=== PATIENT | male | born 1990 | race Caucasian/White ===

== ENCOUNTER 2021-05-05 15:27 | Outpatient (REF) | payer MEDICAID, SELFPAY | END 2021-05-05 15:28 | disposition home or self-care (01) | LOC: HO.LAB 15:27 | PROVIDERS: Visit Provider Internal Medicine | DX: Z20.822 Contact with and (suspected) exposure to COVID-19 (principal) | CPT/HCPCS: C9803; U0003; U0005 ==

== ENCOUNTER 2023-02-17 13:57 | Outpatient (REF) | payer MEDICAID, SELFPAY ==
--- NOTE | ~2023-02-17 | XR_ITS ---
EXAMINATION: XR HAND, LEFT CLINICAL INFORMATION: Pain COMPARISON: February 17 TECHNIQUE: PA, lateral, and oblique views of the left hand. FINDINGS: There is healed fracture of the fifth metacarpal bone with side plate and screws in position. Fracture is completely healed. No new fractures are identified. Soft tissues are unremarkable. XR/XR hand LT min 3V IMPRESSION: Healed boxers fracture with hardware
--- NOTE | ~2023-02-17 | XR_ITS ---
EXAMINATION: XR FINGER, RIGHT CLINICAL INFORMATION: Pain COMPARISON: None available. TECHNIQUE: AP, lateral, oblique views of the right hand and first finger. FINDINGS: There are changes of osteoarthritis in the first metacarpophalangeal joint with narrowing of the joint space and subluxation. Soft tissues are mildly prominent surrounding the joint space. XR/XR finger RT min 2V IMPRESSION: Mild changes of osteoarthritis of the first metacarpophalangeal joint
--- NOTE | ~2023-02-17 | XR_ITS ---
EXAMINATION: XR SHOULDER, LEFT CLINICAL INFORMATION: Left shoulder pain COMPARISON: 01/22/2020 TECHNIQUE: AP external rotation, Grashey, scapular Y, and axillary views of the left shoulder. FINDINGS: The bones and soft tissues are normal. No fracture. Glenohumeral and acromioclavicular alignment is anatomic with normal joint space. No abnormal soft tissue calcifications. XR/XR shoulder LT min 2V IMPRESSION: Normal left shoulder.
== END 2023-02-17 13:58 | disposition home or self-care (01) ==
LOC: HO.XRAY 13:57
PROVIDERS: PCP Emergency Medicine; Visit Provider Emergency Medicine
DX: S69.91XD Unspecified injury of right wrist, hand and finger(s), subsequent encounter (principal); S69.92XD Unspecified injury of left wrist, hand and finger(s), subsequent encounter; M25.512 Pain in left shoulder
CPT/HCPCS: 73030; 73130; 73140

== ENCOUNTER 2023-03-31 15:17 | Outpatient (REF) | payer MEDICAID, SELFPAY ==
[2023-03-31 17:02] LABS: Alanine Aminotransferase 28 U/L (0-40); Albumin Level 4.4 g/dL (3.5-5.0); Alkaline Phosphatase 95 U/L (39-117); Anion Gap 13 (12-20); Aspartate Amino Transferase 18 U/L (5-37); Bilirubin Total 0.3 mg/dL (0.0-1.0); Blood Urea Nitrogen 11 mg/dL (9-16); Calcium 9.9 mg/dL (8.4-10.2); Carbon Dioxide 29 mmol/L (22-29); Chloride 105 mmol/L (96-108); Cholesterol 163 mg/dL (<200); Estimated Glomerular Filt Rate > 60; Glucose Random 98 mg/dL (60-115); HDL Cholesterol 39 mg/dL (>40); LDL Cholesterol Calculated 99 mg/dL (<100); Potassium 4.5 mmol/L (3.3-5.1); Sodium 142 mmol/L (135-145); Triglycerides 126 mg/dL (<150)
[2023-04-01 03:59] LABS: CT PCR NOT DETECTED (Not Detect.); NG PCR NOT DETECTED (Not Detect.)
[2023-04-02 08:14] LABS: RPR Rapid Plasma Reagin NON-REACTIVE (NON-REACTIVE)
== END 2023-03-31 15:18 | disposition home or self-care (01) ==
LOC: HO.HHCL 15:17
PROVIDERS: Visit Provider Nurse Practitioner Family
DX: Z11.3 Encounter for screening for infections with a predominantly sexual mode of transmission (principal); R03.0 Elevated blood-pressure reading, without diagnosis of hypertension
CPT/HCPCS: 0353U; 80053; 80061; 86592

== ENCOUNTER 2023-07-23 16:26 | Outpatient (REF) | payer MEDICAID, SELFPAY ==
[2023-07-27 08:44] LABS: HIV RNA PCR Qn Copies NOT DETECTED copies/mL (NOT DETECTED); HIV RNA PCR Qn Log Copies NOT DETECTED (NOT DETECTED)
== END 2023-07-23 16:27 | disposition home or self-care (01) ==
LOC: HO.HHCL 16:26
PROVIDERS: Visit Provider Nurse Practitioner Family
DX: Z11.3 Encounter for screening for infections with a predominantly sexual mode of transmission (principal)
CPT/HCPCS: 36415; 87536

== ENCOUNTER 2024-03-07 10:22 | Outpatient (REF) | payer MEDICAID, SELFPAY ==
--- NOTE | ~2024-03-07 | XR_ITS ---
EXAMINATION: XR SHOULDER, RIGHT CLINICAL INFORMATION: Pain right shoulder COMPARISON: None available. TECHNIQUE: Two views of the right shoulder. FINDINGS: Acromioclavicular and glenohumeral alignment maintained. No abnormal soft tissue calcifications appreciated adjacent to the humeral head. XR/XR shoulder RT min 2V IMPRESSION: Acromioclavicular and glenohumeral alignment maintained. Electronically signed by: Leyda Maldonado MD 04/05/2024 06:05 AM EDT
== END 2024-03-07 10:23 | disposition home or self-care (01) ==
LOC: HO.HOSX 10:22
PROVIDERS: Visit Provider Orthopaedic Surgery
DX: M25.511 Pain in right shoulder (principal); M25.512 Pain in left shoulder
CPT/HCPCS: 73030; 99202

== ENCOUNTER 2024-03-07 13:13 | Outpatient (AMB) | payer MEDICAID, SELFPAY ==
--- NOTE | 2024-03-07 13:35 | A.OFFVIS_ITS ---
Vital Signs 03/07/24 13:43 Height 5 ft 10 in Weight 196 lb BMI 28.1 Intake Visit Reasons: LT shoulder pain Intake Note: Scottie is a 33 year old male who presents with complaints of progressively worsening left shoulder pain. He also has intermittent right shoulder discomfort. States that he injured his left shoulder 2-3 years ago when he fell directly onto his left shoulder. Since that time he has had weakness when lifting his left hand above shoulder height. He has failed the last 6 weeks of conservative treatment. He has tried Tylenol, anti-inflammatory medicines, topical creams and lidocaine patches which gave him minimal relief. He has also done physical therapy exercises which aggravated his pain. Allergies SEAFOOD Allergy (Unknown, Uncoded 03/07/24 13:49) SWELLING Medication List - Last Reconciled 03/07/24 by Armani Frederick MD baclofen 10 mg PO TID diclofenac sodium 1% 2 grams topical QID lidocaine 5% patches topical lisinopril 10 mg PO DAILY PFSH Surgical History (Updated 03/07/24 @ 13:50 by SURINDER Thomas) Hx of hand surgery Social History (Updated 03/07/24 @ 13:50 by SURINDER Thomas) Patient Tobacco Use Status: Current everyday Tobacco user Current occupational status: unemployed Current occupation: right hand dominant Physical Exam Vital Signs: BMI result Body Mass Index 28.1 Const Other: Well-nourished well-developed very friendly male awake alert and oriented x3 in no acute distress Extrem Other: Bilateral upper extremity examination shows good capillary refill, no skin lesions noted, normal sensation light touch Left shoulder examination shows decreased range of motion when compared to his right shoulder, 4+ out of 5 strength with supraspinatus testing, positive impingement signs, tenderness over his acromioclavicular joint, no instability Results Reviewed Results Reviewed: X-rays of the patient's right shoulder taken today show moderate acromioclavicular joint narrowing, a type 2 acromion, no acute bony abnormalities X-rays of the patient's left shoulder taken previously show moderate to severe acromioclavicular joint narrowing, a type 2 acromion, no acute bony abnor malities Assessment & Plan Assessment & Plan (1) Left shoulder pain: Code(s): M25.512 - Pain in left shoulder Category: Medical Plan Mr. Schwartz presents with progressively worsening left shoulder pain and weakness due to impingement syndrome and possible rotator cuff tearing. Thus, I will send the patient for an MRI of his left shoulder for further evaluation. I will see him back once the MRI is completed to discuss the findings and treatment options. Feel free to call me at any time should questions regarding his orthopedic management arise. Thank you very much for asking me to see this very friendly patient. I spent 22 minutes in reviewing the patient's records and imaging studies, seeing the patient and documenting in the medical record. Orders: Orders XR shoulder RT min 2V Today M25.511 - Pain in right shoulder MR shoulder LT wo con Today M25.512 - Pain in left shoulder Coding Level of Care Code New Pt Level 3 (15810) Diagnoses Left shoulder pain M25.512
[2024-03-07 13:43] VITALS: BMI 28.1
== END 2024-03-07 13:55 | disposition home or self-care (01) ==
PROVIDERS: PCP Emergency Medicine; Referring Provider Emergency Medicine; Visit Provider Orthopaedic Surgery
DX: M25.512 Pain in left shoulder (principal)
CPT/HCPCS: 99203

== ENCOUNTER 2024-03-14 10:27 | Outpatient (AMB) | payer MEDICAID, SELFPAY ==
--- NOTE | 2024-03-14 10:41 | A.OFFVIS_ITS ---
Vital Signs 03/14/24 10:47 Height 5 ft 10 in Intake Visit Reasons: NewProb- B/L knee pain Intake Note: Scottie is a 33 year old male who presents with complaints of progressively worsening bilateral knee pains and giving way, right greater than left. The patient describes his right knee pain as sharp in nature. Most of the pain is along the medial aspect of his knee. The patient states that his symptoms have gotten worse over the last 5 years in spite of continued non operative treatments. He has failed the last 6 weeks of conservative treatment which include a home exercise program, lidocaine patches, Tylenol and anti- inflammatory medicines. He states that his right knee will give out several times per day. He has difficulty going up and down stairs because of his symptoms. Allergies SEAFOOD Allergy (Unknown, Uncoded 03/07/24 13:49) SWELLING Medication List - Last Reconciled 03/14/24 by Armani Frederick MD baclofen 10 mg PO TID diclofenac sodium 1% 2 grams topical QID lidocaine 5% patches topical lisinopril 10 mg PO DAILY PFSH Surgical History (Updated 03/07/24 @ 13:50 by Rosa Ferro Reuben) Hx of hand surgery Social History Patient Tobacco Use Status: Current everyday Tobacco user Current occupational status: unemployed Current occupation: right hand dominant Physical Exam Const Other: Well-nourished well-developed very friendly male awake alert and oriented x3 in no acute distress Extrem Other: Bilateral lower extremity examination shows good capillary refill, no skin lesions noted, normal sensation light touch Right knee examination shows a minimal effusion, minimal crepitus with range of motion, tenderness along his medial joint line, positive Олег's test, no instability Results Reviewed Results Reviewed: X-rays of the patient's bilateral knee show minimal diffuse joint space narrowing, no acute bony abnormalities Assessment & Plan Assessment & Plan (1) Right knee pain: Code(s): M25.561 - Pain in right knee Category: Medical Plan Mr. Schwartz presents with progressively worsening right knee pain and mechanical symptoms most likely due to tearing of his medial meniscus. Thus, I will send the patient for an MRI of his right knee for further evaluation. I will see him back once the MRI is completed to discuss the findings and treatment options. Feel free to call me at any time should questions regarding his orthopedic management arise. I spent 22 minutes in reviewing the patient's records and imaging studies, seeing the patient and documenting in the medical record. Orders: Orders MR knee RT wo con 03/14/24 M25.561 - Pain in right knee XR knee LT 3V 03/14/24 M25.562 - Pain in left knee XR knee RT 3V 03/14/24 M25.561 - Pain in right knee Coding Level of Care Code Est Pt Level 3 (98420) Diagnoses Right knee pain M25.561
== END 2024-03-14 11:06 | disposition home or self-care (01) ==
PROVIDERS: PCP Emergency Medicine; Referring Provider Emergency Medicine; Visit Provider Orthopaedic Surgery
DX: M25.561 Pain in right knee (principal)
CPT/HCPCS: 99213

== ENCOUNTER 2024-03-14 11:29 | Outpatient (REF) | payer MEDICAID, SELFPAY ==
--- NOTE | ~2024-03-14 | XR_ITS ---
Exam: X-ray bilateral knees INDICATION: Pain TECHNIQUE: 3 views of each knee FINDINGS: Right knee: Moderate joint effusion. Bone mineralization is normal. Cartilage spaces and alignment are maintained. Left knee: Moderate joint effusion. Bone mineralization is normal. Joint spaces and alignment are preserved. XR/XR knee LT 3V IMPRESSION: Moderate bilateral joint effusions. Electronically signed by: Leyda Maldonado MD 04/05/2024 06:42 AM EDT
--- NOTE | ~2024-03-14 | XR_ITS ---
Exam: X-ray bilateral knees INDICATION: Pain TECHNIQUE: 3 views of each knee FINDINGS: Right knee: Moderate joint effusion. Bone mineralization is normal. Cartilage spaces and alignment are maintained. Left knee: Moderate joint effusion. Bone mineralization is normal. Joint spaces and alignment are preserved. XR/XR knee RT 3V IMPRESSION: Moderate bilateral joint effusions. Electronically signed by: Leyda Maldonado MD 04/05/2024 06:42 AM EDT
== END 2024-03-14 11:30 | disposition home or self-care (01) ==
LOC: HO.HOSX 11:29
PROVIDERS: Visit Provider Orthopaedic Surgery
DX: M25.561 Pain in right knee (principal); M25.562 Pain in left knee
CPT/HCPCS: 73562; 99212

== ENCOUNTER 2024-03-24 13:31 | Outpatient (AMB) | payer MEDICAID, SELFPAY ==
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
== END 2024-03-24 14:58 | disposition home or self-care (01) ==
PROVIDERS: PCP Emergency Medicine
DX: M79.644 Pain in right finger(s) (principal); G89.29 Other chronic pain
CPT/HCPCS: 99213

== ENCOUNTER 2024-03-24 13:42 | Outpatient (REF) | payer MEDICAID, SELFPAY ==
--- NOTE | ~2024-03-24 | XR_ITS ---
EXAMINATION: XR HAND, RIGHT CLINICAL INFORMATION: Pain in right hand. COMPARISON: None available. TECHNIQUE: PA, lateral, and oblique views of the right hand. FINDINGS: Bone mineralization is normal. Ulnar minus variance. Advanced degenerative changes in the first metacarpophalangeal joint with joint space narrowing and hypertrophic change. Mild degenerative changes with hypertrophic change in the second and third DIP joints. XR/XR hand RT min 3V IMPRESSION: 1. Advanced degenerative changes first metacarpophalangeal joint. 2. Mild degenerative changes second and third DIP joints. 3. No displaced fracture. Recommend follow-up imaging in 10-14 days if fracture is suspected. Electronically signed by: Leyda Maldonado MD 04/05/2024 07:32 AM EDT
== END 2024-03-24 13:43 | disposition home or self-care (01) ==
LOC: HO.HOSX 13:42
PROVIDERS: PCP Nurse Practitioner Family
DX: M79.641 Pain in right hand (principal); M79.644 Pain in right finger(s); G89.29 Other chronic pain; M18.11 Unilateral primary osteoarthritis of first carpometacarpal joint, right hand
CPT/HCPCS: 73130; 99212

== ENCOUNTER 2024-04-22 09:47 | Outpatient (REF) | payer MEDICAID, SELFPAY ==
--- NOTE | ~2024-04-22 | MR_ITS ---
EXAMINATION: MR KNEE WITHOUT CONTRAST, RIGHT CLINICAL INFORMATION: Right knee pain COMPARISON: Radiographs 03/14/2024 TECHNIQUE: MRI of the knee without contrast was performed using routine sequences on a high-field scanner. Image quality is degraded by patient motion artifact. FINDINGS: MENISCI: Medial Meniscus: Intact Lateral Meniscus: Intact LIGAMENTS: Cruciate: Intact. Mild mucoid degeneration of the ACL. Reactive soft tissue edema at the posterior most aspect of Hoffa's fat pad. Collateral: Intact EXTENSOR MECHANISM: Intact. Minimal proximal patellar tendinitis. ARTICULAR CARTILAGE/BONE: Patellofemoral Compartment: Normal Medial Compartment: Normal Lateral Compartment: Normal JOINT FLUID AND BURSAE: Small joint effusion and a leaking or recently ruptured Laguna's cyst with fluid tracking proximally, superficial to the medial gastrocnemius muscle. MR/MR knee RT wo con IMPRESSION: 1. No meniscal tear. 2. Mild mucoid degeneration of the ACL. 3. Minimal proximal patellar tendinitis. 4. Small joint effusion and a leaking or recently ruptured Laguna's cyst. Electronically signed by: Tommy Menchaca MD 04/25/2024 04:25 PM EDT
--- NOTE | ~2024-04-22 | MR_ITS ---
EXAMINATION: MRI LEFT SHOULDER WITHOUT CONTRAST CLINICAL INFORMATION: M25.512 - Pain in left shoulder COMPARISON: Radiographs 02/17/2023 TECHNIQUE: MRI of the shoulder without contrast is performed on a 1.5 Carolyn high-field scanner. FINDINGS: ROTATOR CUFF: Intact. No muscle atrophy or fatty infiltration. BICEPS: Normal. CORACOACROMIAL ARCH: The undersurface of the acromion is flat with no subacromial spur. Minimal acromioclavicular osteoarthritis. LABRUM/CAPSULE: Undersurface tearing throughout the posterior labrum. At the 9 o'clock position, there is a paralabral cyst which extends medially between the scapula and the infraspinatus muscle. This cyst is slightly lobulated, measures 6.4 cm in length, with maximal transverse measurements of 2.2 x 2.2 cm. GLENOHUMERAL JOINT/MARROW: No significant joint effusion. ADDITIONAL FINDINGS: None. MR/MR shoulder LT wo con IMPRESSION: 1. Undersurface tearing throughout the posterior labrum with a large paralabral cyst at the 9 o'clock position as described. 2. No rotator cuff tear. 3. Degenerative changes along the posterior glenoid. Minimal acromioclavicular osteoarthritis. Electronically signed by: Tommy Menchaca MD 04/25/2024 04:21 PM EDT RP
== END 2024-04-22 09:48 | disposition home or self-care (01) ==
LOC: HO.MRI 09:47
PROVIDERS: PCP Nurse Practitioner Family; Visit Provider Orthopaedic Surgery
DX: M25.512 Pain in left shoulder (principal); M25.561 Pain in right knee
CPT/HCPCS: 73221; 73721

== ENCOUNTER 2024-05-02 15:42 | Outpatient (AMB) | payer MEDICAID, SELFPAY ==
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
[2024-05-02 16:47] VITALS: BMI 28.1
== END 2024-05-02 17:00 | disposition home or self-care (01) ==
PROVIDERS: PCP Nurse Practitioner Family; Referring Provider Nurse Practitioner Family; Visit Provider Orthopaedic Surgery
DX: M19.041 Primary osteoarthritis, right hand (principal)
CPT/HCPCS: 99213

== ENCOUNTER → 2024-05-02 15:42 | Outpatient (BNVA) | payer MEDICAID, SELFPAY | PROVIDERS: PCP Nurse Practitioner Family; Visit Provider Orthopaedic Surgery | DX: M19.041 Primary osteoarthritis, right hand (principal) | CPT/HCPCS: 99212 ==

== ENCOUNTER 2024-05-16 08:59 | Outpatient (AMB) | payer MEDICAID, SELFPAY ==
--- NOTE | 2024-05-16 09:01 | A.OFFVIS_ITS ---
Intake Visit Reasons: OV-Right Knee and LT Shoulder MRI Review Intake Note: Scottie is a 33 year old male that presents in the office today for a Right Knee and LT Shoulder MRI Review. The patient reports only mild discomfort in his right knee at this time. He is most concerned with his left shoulder pain and weakness. The patient describes his pain as sharp and severe in nature. Most of the pain is along the posterior and lateral aspects of his left shoulder. He reports weakness when lifting his left hand above shoulder height. His symptoms have gotten worse over the last year in spite of continued non operative treatments. He has taken Tylenol, anti-inflammatory medicines and muscle relaxants which gave him minimal relief. He has also use topical creams which gave him no relief. He has done physical therapy exercises which aggravated his pain. Allergies SEAFOOD Allergy (Unknown, Uncoded 05/02/24 16:47) SWELLING Medication List - Last Reconciled 05/16/24 by Armani Frederick MD baclofen 10 mg PO TID diclofenac sodium 1% 2 grams topical QID lidocaine 5% patches topical lisinopril 10 mg PO DAILY PFSH Surgical History Hx of hand surgery Social History Alcohol intake: never Patient Tobacco Use Status: Current someday Tobacco user Tobacco use type: Cigarette Substance Use Type: Marijuana Current occupational status: unemployed Current occupation: right hand dominant Physical Exam Const Other: Well-nourished well-developed very friendly male awake alert and oriented x3 in no acute distress Extrem Other: Left shoulder examination shows slightly decreased range of motion when compared to his right shoulder, 4/5 strength with supraspinatus testing, pain with resisted forward flexion, no instability Right knee examination shows no effusion, no crepitus with range of motion, negative Олег's test Results Reviewed Results Reviewed: MRI of the patient's right knee shows no evidence of ligamentous or meniscus tearing, no significant degenerative changes MRI of the patient's left shoulder shows a tear of the posterior labrum as well as a large paralabral cyst Assessment & Plan Assessment & Plan (1) Left shoulder pain: Code(s): M25.512 - Pain in left shoulder Category: Medical Plan Harsh presents with left shoulder pain and weakness possibly due to the paralabral cyst causing compression of the suprascapular nerve at the suprascapular notch. I had a lengthy discussion with the patient regarding the treatment options. At this point he appears to be failing continued non operative treatments. No one here at [facility] treats this type of problem. The patient could follow-up with Dr. Zamora in [place] who might treat this type of problem. Or, the patient could be evaluated by Dr. BEATRIZ Garnett at the [facility] who specializes in this type of problem. The patient states that he wishes to see Dr. Garnett. I did give him contact information. He will follow up with me on an as-needed basis. Feel free to call me at any time should questions regarding his orthopedic management arise. I spent 20 minutes in reviewing the patient's records and imaging studies, seeing the patient and documenting in the medical record. Coding Level of Care Code Est Pt Level 3 (52287) Complex EM visit Add On G2211 Diagnoses Left shoulder pain M25.512
== END 2024-05-16 09:23 | disposition home or self-care (01) ==
PROVIDERS: PCP Nurse Practitioner Family; Visit Provider Orthopaedic Surgery
DX: M25.512 Pain in left shoulder (principal)
CPT/HCPCS: 99213

== ENCOUNTER → 2024-05-16 08:59 | Outpatient (BNVA) | payer MEDICAID, SELFPAY | PROVIDERS: PCP Nurse Practitioner Family; Visit Provider Orthopaedic Surgery | DX: M25.512 Pain in left shoulder (principal) | CPT/HCPCS: 99212 ==

== ENCOUNTER 2024-08-29 08:48 | Outpatient (REF) | payer MEDICAID, SELFPAY ==
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
== END 2024-08-29 08:49 | disposition home or self-care (01) ==
LOC: HO.HOSX 08:48
PROVIDERS: Visit Provider Orthopaedic Surgery
DX: Z13.89 Encounter for screening for other disorder (principal)

== ENCOUNTER 2024-09-26 12:25 | Outpatient (REF) | payer MEDICAID, SELFPAY ==
--- OUTSIDE RECORDS SUMMARY | 2024-09-27 14:46 | XMS_ITS | Clinical Summary ---
Author Organization [employer] Address [address] [facility] 7t [place] [address] Care Team Providers Care Auger Mill Operator Name Role Phone JeffClaire delong TENZIN Primary Care Provider [phone] Allergies No known active allergies Medications Blood [...] Qn Copies NOT DETECTED NOT DETECTED copies/mL [facility] HIV RNA PCR Qn Log Copies NOT DETECTED NOT DETECTED [facility] Comment:Result Units: Log co pies/mLThis test was performed using Real-Time Polymerase ChainReaction.Reportable Range: 20 copies/mL to 10,000,000 copies/mL(1.30 log copies/mL to 7.00 log copies/mL).THIS TEST WAS PERFORMED AT:[facility] [place] [phone] CAGE MD 07/23/2023 4:28 PM EST 07/23/2023 5:[address] TAILOR APPRENTICE LAB BLOOD ORDERABLES Final Resu lt [facility] [address] [place] [address] [phone] from Last 3 Months or Most Recently Relevant to Health Maintenance Insurance [employer] C3 HSN FULL [employer] C3 HSN FULL Care Teams Auger Mill Operator Relationship Specialty Start Date End Date Claire Carrera NP [address] [place] [phone] PCP - General Family Medicine 03/28/24
== END 2024-09-26 12:26 | disposition home or self-care (01) ==
LOC: HO.HOSX 12:25
PROVIDERS: Visit Provider Orthopaedic Surgery
DX: Z13.89 Encounter for screening for other disorder (principal)

== ENCOUNTER 2024-12-05 14:22 | Outpatient (REF) | payer MEDICAID, SELFPAY ==
--- OUTSIDE RECORDS SUMMARY | 2024-12-05 15:34 | XMS_ITS | Clinical Summary ---
Author Organization [employer] [facility] Address [address] [facility] 7t [place] [address] Care Team Providers Care Finishing Powder Press Operator Name Role Phone DebiClaire TENZIN Primary Care Provider [phone] Allergies No known active allergies Medications Blood [...] 01/18/2023 Chronic pain of left hand 01/18/2023 Encounters Date Type Department Care Team Description 10/06/2024 Population Health Risk Score [facility] (C3) Department [address] [id number] Provider, Population Health Generic from Last 3 Months Immunizations Name Administration Dates Next Due Tdap [...] (PISQ) 2006 Hepatitis C Screening 2009 Hepatitis B Vaccines (1 of 3 - [...] on patient's age to complete this topic Hepatitis A Vaccines Aged Out No long er eligible based on patient's age to complete [...] Qn Copies NOT DETECTED NOT DETECTED copies/mL [facility] HIV RNA PCR Qn Log Copies NOT DETECTED NOT DETECTED [facility] Comment:Result Units: Log co pies/mLThis test was performed using Real-Time Polymerase ChainReaction.Reportable Range: 20 copies/mL to 10,000,000 copies/mL(1.30 log copies/mL to 7.00 log copies/mL).THIS TEST WAS PERFORMED AT:[facility] [place] [phone] CAGE MD 07/23/2023 4:28 PM EST 07/23/2023 5:19 PM EST Amanda Ariana OPERATOR TECHNICIAN LAB BLOOD ORDERABLES Final Resu lt [facility] [address] [place] [address] [phone] from Last 3 Months or Most Recently Relevant to Health Maintenance [facility] F[facility] C3 HSN FULL Care Teams Finishing Powder Press Operator Relationship Specialty Start Date End Date Claire Carrera NP [address] [place] [address] PCP - General Family Medicine 03/28/24
== END 2024-12-05 14:23 | disposition home or self-care (01) ==
LOC: HO.HOSX 14:22
PROVIDERS: Visit Provider Orthopaedic Surgery
DX: Z13.89 Encounter for screening for other disorder (principal)

== ENCOUNTER 2024-12-06 08:48 | Outpatient (AMB) | payer MEDICAID, SELFPAY ==
[2024-12-06 09:02] VITALS: BMI 28.1
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
--- OUTSIDE RECORDS SUMMARY | 2024-12-06 09:11 | XMS_ITS | Clinical Summary ---
Author Organization [facility] Address [address] [facility] 7t [place] [address] Care Team Providers Care Dental Lab Technician Name Role Phone JeffClaire delong TENZIN Primary Care Provider [phone] Allergies No known active allergies Medications Blood [...] Encounters Date Type Department Care Team Description 12/06/2024 Orders Only [facility] External Provider, [facility] 10/06/2024 Population Health Risk Score [facility] (C3) Department [address] [phone] Provider, Population Health Generic from Last 3 Months Immunizations Immunization Administration Dates Next Due Tdap 01/22/2020 Social [...] Procedure Name Priority Date/Time Associated Diagnosis Comments XR HAND 3+ VIEWS RIGHT Routine 12/06/2024 8:53 AM EDT HIV 1 RNA, QUANTITATIVE REAL TIME PCR Routine 07/23/2023 4:28 PM EST from Last 3 Months or Most Recently Relevant to Health Maintenance Results * XR Hand 3+ Views Right (12/06/2024 8:53 AM EDT) Anatomical Region Laterality Modality Upper Extremities, Hand Right Radiogra phic Imaging 12/06/2024 8:53 AM EDT Narrative 12/06/2024 9:05 AM EDT ? [facility] ? [address] ?[place], [place] [address] ?XRay Report ? Signed ? Patient: Schwartz,Scottie Houes ?MR#: [id number] ?? [id number] ? : 1990 ?Acct:[id number] ? Age/Sex: 34 / M ?ADM Date: 12/06/24 ? Loc: [facility].HOSX ? Attending Dr: Magi Kennedy MD ? Ordering Physician: Ziyad Roe PA-C ?? Date of Service: 12/06/24 ?? Procedure(s): XR hand RT min 3V ?? Accession Number(s): [id number] ? cc: Amanda Lane NP; Ziyad Roe PA-C ? EXAMINATION: ?? XR HAND, RIGHT ? CLINICAL INFORMATION: ?? M79.641 - Pain in right hand ? COMPARISON: ?? 03/24/2024. ? TECHNIQUE: ?? PA, lateral, and oblique views of the right hand. ? FINDINGS: ?? No fracture, dislocation, or suspicious bone lesion. Normal bone ?? mineralization. ?? Normal alignment. ?? No periarticular osteopenia or erosions evident. ? Moderate degenerative arthritis noted at the first MCP joint. ?? Remainder of the MCPs appear normal. ?? The DIP and PIP joints appear normal. ? Soft tissues appear normal. ? XR/XR hand RT min 3V ?? IMPRESSION: ?? 1. No acute bony abnormalities. ?? 2. Moderate degenerative arthrosis at the first MCP joint. ? Electronically signed by: ??Ladarius Charlton MD ??12/06/2024 09:02 AM EDT RP ? Dictated By: ?Ladarius Charlton MD ? Signed By: ?<Electronically signed by Ladarius Charlton MD in OV> ?12/06/24 0902 ? DD/ 0853 ? TD/TT: 12/06/24 0857 ? Fortune Teller: ? Procedure Note Toan Orellana - 12/06/2024 [facility] [address] [place] [address] XRay Report Signed Patient: Scottie Schwartz#: [id number] : 1990Acct:[id number] Age/Sex: 34 / MADM Date: 12/06/24 [facility]: Magi Kennedy MD Ordering Physician: Ziyad Roe PA-C Date of Service: 12/06/24 Procedure(s): XR hand RT min 3V Accession Number(s): [id number] cc: Amanda Lane DBA; Ziyad Roe PA-C EXAMINATION: XR HAND, RIGHT CLINICAL INFORMATION: M79.641 - Pain in right hand COMPARISON: 03/24/2024. TECHNIQUE: PA, lateral, and oblique views of the right hand. FINDINGS: No fracture, dislocation, or suspicious bone lesion. Normal bone mineralization. Normal alignment. No periarticular osteopenia or erosions evident. Moderate degenerative arthritis noted at the first MCP joint. Remainder of the MCPs appear normal. The DIP and PIP joints appear normal. Soft tissues appear normal. XR/XR hand RT min 3V IMPRESSION: 1. No acute bony abnormalities. 2. Moderate degenerative arthrosis at the first MCP joint. Electronically signed by: Ladarius Charlton MD 12/06/2024 09:02 AM EDT Dictated By: Ladarius Charlton MD Signed By: <Electronically signed by Ladarius Charlton MD in OV> 12/06/24 0902 DD/ 0853 TD/TT: 12/06/24 0857 Fortune Teller: [facility] External Provider IMG XR PROCEDURES Edited Result - Final * HIV-1 RNA, Quantitative, Real-Time PCR (07/23/2023 4:28 PM EST) HIV RNA PCR Qn Copies NOT DETECTED NOT DETECTED copies/mL [facility] HIV RNA PCR Qn Log Copies NOT DETECTED NOT DETECTED [facility] Comment:Result Units: Log co pies/mLThis test was performed using Real-Time Polymerase ChainReaction.Reportable Range: 20 copies/mL to 10,000,000 copies/mL(1.30 log copies/mL to 7.00 log copies/mL).THIS TEST WAS PERFORMED AT:[facility] [place] [phone] CAGE MD 07/23/2023 4:28 PM EST 07/23/2023 5:19 PM EST Amanda Ariana [facility] LAB BLOOD ORDERABLES Final Resu lt [facility] [address] [place] [address] [phone] from Last 3 Months or Most Recently Relevant to Health Maintenance Insurance [employer] C3 HSN FULL [employer] C3 HSN FULL Care Teams Dental Lab Technician Relationship Specialty Start Date End Date Claire Carrera NP [address] [place] [id number] PCP - General Family Medicine 03/28/24
--- OUTSIDE RECORDS SUMMARY | 2024-12-06 09:11 | XMS_ITS | Encounter Summary ---
Author Organization [employer] Address [address] [facility] 7t [place] [address] Care Team Providers Care Knot Picker Cloth Name Role Phone JeffClaire delong TENZIN Primary Care Provider [phone] Encounter Details Date Type Department Care Team (Late st Contact Info) Description 12/06/2024 Orders Only [facility] External Provider, [facility] Social History Tobacco Use Types Packs/Day Years Used Date Smoking Tobacco: Every Day Cigarettes 0.3 5 Smokeless Tobacco: Never Alcohol Use Standard Drinks/Week Comments Yes 0 (1 standard drink = 0.6 oz pur e alcohol) social occasions Depression Answer Date Recorded Patient Health Questionnaire-9 Score 0 03/31/2023 Housing Stability Answer Date Recorded What is your housing situation today? I have josethomas bernstein 05/25/[address] you [...] Orientation Straight 01/18/2023 1: 33 PM EDT documented as of this encounter Plan of Treatment Not on file documented as of this encounter Procedures Procedure Name Priority Date/Time Associated Diagnosis Comments XR HAND 3+ VIEWS RIGHT Routine 12/06/2024 8:53 AM EDT documented in this encounter Results * XR Hand 3+ Views Right (12/06/2024 8:53 AM EDT) Anatomical Region Laterality Modality Upper Extremities, Hand Right Radiogra phic Imaging 12/06/2024 8:53 AM EDT Narrative 12/06/2024 9:05 AM EDT ? [facility] ? [address] ?[place] [address] ?XRay Report ? Signed ? Patient: Schwartz,Neo ?MR#: [id number] ?? [id number] ? : 1990 ?Acct:[id number] ? Age/Sex: 34 / M ?ADM Date: 12/06/24 ? Loc: HO.HOSX ? Attending Dr: Magi Kennedy MD ? Ordering Physician: Ziyad Roe PA-C ?? Date of Service: 12/06/24 ?? Procedure(s): XR hand RT min 3V ?? Accession Number(s): [id number] ? cc: Amanda Lane MASTER OCEAN YACHT; Ziyad Roe PA-C ? EXAMINATION: ?? XR [...] signed by Ladarius Charlton MD in OV> ?12/06/[address] ? DD/ 0853 ? TD/TT: 12/06/24 0857 ? Loop Tacker: ? Procedure Note Donotuseinterpreter, Image - 12/06/2024 [facility] [address] [place] [address] [address] [place] [address] XRay Report Signed Patient: Scottie Schwartz#: [id number] : 1990Acct:[id number] Age/Sex: 34 / MADM Date: 12/06/24 Loc: [facility] Attending Dr: Magi Kennedy MD Ordering Physician: Ziyad Roe PA-C Date of Service: 12/06/24 Procedure(s): XR hand RT min 3V Accession Number(s): [id number] cc: Amanda Lane MASTER OCEAN YACHT; Ziyad Roe PA-C EXAMINATION: XR HAND, RIGHT [...] in OV> 12/06/24 0902 DD/ 0853 TD/TT: 12/06/2457 Loop Tacker: [facility] External Provider IMG XR PROCEDURES Edited Result - Final documented in this encounter Visit Diagnoses Not on filedocumented in this encounter Additional Health Concerns Assessment Noted Time PHQ-9 Depression Total Score: 0 03/31/20 23 2:24 PM EDT documented as of this encounter Care Teams Knot Picker Cloth Relationship Specialty Start Date End Date Claire Carrera NP [address] [place] [address] PCP - General Family Medicine 03/28/24 documented as of this encounter
== END 2024-12-06 09:46 | disposition home or self-care (01) ==
LOC: HO.HOS 08:49
PROVIDERS: PCP Nurse Practitioner Family; Visit Provider Orthopaedic Surgery
DX: M19.041 Primary osteoarthritis, right hand (principal); R20.0 Anesthesia of skin; R20.2 Paresthesia of skin
CPT/HCPCS: 99213

== ENCOUNTER 2024-12-06 08:48 | Outpatient (REF) | payer MEDICAID, SELFPAY ==
--- NOTE | ~2024-12-06 | XR_ITS ---
EXAMINATION: XR HAND, RIGHT CLINICAL INFORMATION: M79.641 - Pain in right hand COMPARISON: 03/24/2024. TECHNIQUE: PA, lateral, and oblique views of the right hand. FINDINGS: No fracture, dislocation, or suspicious bone lesion. Normal bone mineralization. Normal alignment. No periarticular osteopenia or erosions evident. Moderate degenerative arthritis noted at the first MCP joint. Remainder of the MCPs appear normal. The DIP and PIP joints appear normal. Soft tissues appear normal. XR/XR hand RT min 3V IMPRESSION: 1. No acute bony abnormalities. 2. Moderate degenerative arthrosis at the first MCP joint. Electronically signed by: Ladarius Charlton MD 12/06/2024 09:02 AM EDT
== END 2024-12-06 08:49 | disposition home or self-care (01) ==
LOC: HO.HOSX 08:48
PROVIDERS: PCP Nurse Practitioner Family; Visit Provider Orthopaedic Surgery
DX: M19.041 Primary osteoarthritis, right hand (principal); M79.641 Pain in right hand; R20.2 Paresthesia of skin; R20.0 Anesthesia of skin
CPT/HCPCS: 73130; 99212

== ENCOUNTER → 2024-12-06 08:53 | Outpatient (BNV) | payer MEDICAID, SELFPAY | PROVIDERS: PCP Nurse Practitioner Family; Visit Provider Radiology Diagnostic Radiology | DX: M18.11 Unilateral primary osteoarthritis of first carpometacarpal joint, right hand (principal) | CPT/HCPCS: 73130 ==

== ENCOUNTER 2025-03-02 13:20 | Outpatient (REF) | payer MEDICAID, SELFPAY ==
--- NOTE | 2025-03-02 13:23 | EMG_ITS ---
Chief complaint: Right thumb pain Reason for referral: Evaluate for entrapment neuropathy Referred by: Dr. Kennedy Procedure done: Right upper extremity NCS/EMG Precautions and/or limitations: [None] Patient is Albanian speaking, seen with sustainability coordinator. The limb temperature was monitored continuously and remained between 32-36 degrees C during the performance of the NCS. Nerve Conduction Studies Anti Sensory Summary Table ?Stim Site NR Onset (ms) Norm Onset (ms) Peak (ms) Norm Peak (ms) O-P Amp (?V) Norm O-P Amp Site1 Site2 Delta-0 (ms) Dist (cm) Aung (m/s) Norm Aung (m/s) Right Median Anti Sensory (2nd Digit) Wrist ? 3.5 4.5 <3.6 17.9 >10 Wrist 2nd Digit 3.5 14.0 40 Right Ulnar Anti Sensory (5th Digit) Wrist ? 2.6 3.3 <3.7 19.7 >15.0 Wrist 5th Digit 2.6 14.0 54 Motor Summary Table ?Stim Site NR Onset (ms) Norm Onset (ms) O-P Amp (mV) Norm O-P Amp iAmp (mV) Amp (1st) (%) Site1 Site2 Delta-0 (ms) Dist (cm) Aung (m/s) Norm Aung (m/s) Right Median Motor (Abd Poll Brev) Wrist ? 3.9 <3.9 12.9 >4.5 15.9 100.0 Elbow Wrist 4.5 22.5 50 >45 Elbow ? 8.4 15.3 19.2 118.6 Right Ulnar Motor (Abd Dig Minimi) Wrist ? 2.8 <3.0 10.8 >5 13.1 100.0 B Elbow Wrist 4.0 21.5 54 >45 B Elbow ? 6.8 8.9 11.4 82.4 A Elbow B Elbow 1.2 10.0 83 >45 A Elbow ? 8.0 8.7 11.4 80.6 Comparison Summary Table ?Stim Site NR Peak (ms) Norm Peak (ms) P-T Amp (?V) Site1 Site2 Delta-P (ms) Norm Delta (ms) Right Median/Radial Dig I Comparison (Digit 1 - 10cm) Median NR <2.9 Median Radial Radial ? 2.9 <2.8 15.1 EMG ?Side Muscle Nerve Root Ins Act Fibs Psw Amp Dur Poly Recrt Int Pat Comment Right 1stDorInt Ulnar C8-T1 Nml Nml Nml Nml Nml 0 Nml Complete Right FlexCarRad Median C6-7 Nml Nml Nml Nml Nml 0 Nml Complete Right FlexCarpiUln Ulnar C8,T1 Nml Nml Nml Nml Nml 0 Nml Complete Right Biceps Musculocut C5-6 Nml Nml Nml Nml Nml 0 Nml Complete Right Triceps Radial C6-7-8 Nml Nml Nml Nml Nml 0 Nml Complete Right Deltoid Axillary C5-6 Nml Nml Nml Nml Nml 0 Nml Complete FINDINGS: Right median sensory nerve showed prolonged peak latency. Comparison study between right median and radial sensory nerves showed absent median response. All other nerves tested were within normal. [Concentric] needle EMG was performed in selected muscles of the right upper extremity. Study [did not reveal] signs of electric abnormalities as shown in the table above. [ ] IMPRESSION: 1. This is an abnormal study. 2. There is electrodiagnostic evidence for right mild median neuropathy at the wrist, consistent with carpal tunnel syndrome. 3. There is no electrodiagnostic evidence for ulnar neuropathy, brachial plexopathy, or cervical radiculopathy. Thank you for your kind referral. Ana María Alcala MD, DENNYS Board Certified, [place] [employer] and [employer] (ABPMR) Board Certified, [place] Board [employer] Electrodiagnostic [employer] (ABEM) CODIN [id number] MTDD
== END 2025-03-02 13:21 | disposition home or self-care (01) ==
LOC: HO.NEURO 13:20
PROVIDERS: PCP Nurse Practitioner Family; Visit Provider Orthopaedic Surgery
DX: R20.0 Anesthesia of skin (principal); R20.2 Paresthesia of skin; R94.131 Abnormal electromyogram [EMG]
CPT/HCPCS: 95886; 95909

== ENCOUNTER → 2025-03-02 13:23 | Outpatient (BNV) | payer MEDICAID, SELFPAY | PROVIDERS: PCP Nurse Practitioner Family; Visit Provider Physical Medicine & Rehabilitation | DX: G62.89 Other specified polyneuropathies (principal); G56.01 Carpal tunnel syndrome, right upper limb | CPT/HCPCS: 95886; 95909 ==

== ENCOUNTER 2025-07-04 14:45 | Outpatient (AMB) | payer MEDICAID, SELFPAY ==
[2025-07-04 15:14] VITALS: BMI 28.1
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
--- OUTSIDE RECORDS SUMMARY | 2025-07-04 23:11 | XMS_ITS | Clinical Summary ---
Author Organization [facility] Address [address] [place] [address] Care Team Providers Care Negative Spotter Name Role Phone JeffClaire delong TENZIN Primary Care Provider [phone] Allergies No known active allergies Medications Blood [...] Once per day. 30 tablet 11 4 Active lidocaine (Lidoderm) 5 % patch Apply 1 patch topically Once per day. Remove & discard patch within 12 hours or as directed by MD. 15 patch 2 4 Active baclofen (Lioresal) 10 MG tablet Take 1 tablet (10 mg) by mouth 3 times daily. 90 tablet 4 Active Active Problems Problem Noted Date Diagnosed Date Hand arthritis 12/08/2024 Tobacco dependence 01/18/2023 History of open reduction an d internal fixation (ORIF) procedure 01/18/2023 Chronic left shoulder pain 01/18/2023 Chronic thumb pain, right 01/18/2023 Finger pain, left 01/18/2023 Chronic pain of left hand 01/18/2023 Immunizations Immunization Administration Dates Next Due Tdap [...] 82 07/23/2023 3:35 PM EST Temperature 36.7 C (98.1 F) 07/23/2023 3:35 PM EST Respiratory Rate 16 07/23/2023 3:35 PM EST Oxygen Saturation 98% 07/23/2023 3:35 PM EST Inhaled Oxygen Concentration - - Weight 82.6 kg (182 lb) 07/23/2023 3:35 PM EST Height - - Body Mass Index - - Plan of Treatment Health Maintenance Due Date Last Done Comments Disability Screening 1991 Alcohol/Substance Use Screening 2003 Family Planning (PISQ) 2006 HPV Vaccines (1 - Male 3-dos e series) 2006 Hepatitis C Screening 2009 Hepatitis B Vaccines (1 of 3 - 19+ 3-dose series) 2010 Pneumococcal Vaccine: Pediatrics (0 to 5 Years) and At-Risk Patients (6 to 49) Years (1 of 2 - PCV) 2010 SDOH Screening 03/19/2024 03/19/2023 Depression Screening 03/31/2024 03/31/2023, 03/31/2023 Tobacco Screening 07/23/2024 07/23/2023 COVID-19 Vaccine (1 - 2024-2 6 season) 2025 Influenza Vaccine (#1) 2025 DTaP/Tdap/Td Vaccines (2 - T d or [...] patient's age to complete this topic Meningococcal B Vaccine Aged Out No l onger eligible based on patient's age to complete [...] Qn Copies NOT DETECTED NOT DETECTED copies/mL [facility] HIV RNA PCR Qn Log Copies NOT DETECTED NOT DETECTED [facility] Comment:Result Units: Log co pies/mLThis test was performed using Real-Time Polymerase ChainReaction.Reportable Range: 20 copies/mL to 10,000,000 copies/mL(1.30 log copies/mL to 7.00 log copies/mL).THIS TEST WAS PERFORMED AT:[facility] [place] [id number] CAGE MD 07/23/2023 4:28 PM EST 07/23/2023 5:19 PM EST Amanda Ariana SECURITY ASSESSOR LAB BLOOD ORDERABLES Final Resu lt [facility] [address] [place] [address] [phone] from Last 3 Months or Most Recently Relevant to Health Maintenance Insurance [facility] FULL [facility] Care Teams Negative Spotter Relationship Specialty Start Date End Date Claire Carrera NP [address] [place] [id number] PCP - General Family Medicine 03/28/24
== END 2025-07-04 16:25 | disposition home or self-care (01) ==
LOC: HO.HOS 14:46
PROVIDERS: PCP Nurse Practitioner Family; Visit Provider Orthopaedic Surgery
DX: M19.041 Primary osteoarthritis, right hand (principal); M79.644 Pain in right finger(s); G89.29 Other chronic pain; G56.01 Carpal tunnel syndrome, right upper limb; M18.11 Unilateral primary osteoarthritis of first carpometacarpal joint, right hand
CPT/HCPCS: 20600; 77002; 99214

== ENCOUNTER 2025-07-04 14:45 | Outpatient (REF) | payer MEDICAID, SELFPAY ==
--- NOTE | ~2025-07-04 | FL_ITS ---
EXAMINATION: FL GUIDANCE ONLY FOR NEEDLE PLACEMENT HISTORY: M19.041 - Primary osteoarthritis, right hand COMPARISON: Correlation is made with plain films of the right hand dated 12/06/2024. TECHNIQUE: Fluoroscopy time: 10.7 seconds. DAP: 4253.4 [id number] Images: 1. FINDINGS: A single fluoroscopic spot film of the right thumb demonstrate a needle in the region of the MCP joint. FL/FL guided needle placement IMPRESSION: Fluoroscopy during procedure. Please see procedure report for additional information. Electronically signed by: Zane Huffman MD 07/05/2025 07:04 AM XU
== END 2025-07-04 14:46 | disposition home or self-care (01) ==
LOC: HO.HOSX 14:45
PROVIDERS: PCP Nurse Practitioner Family; Visit Provider Orthopaedic Surgery
DX: M19.041 Primary osteoarthritis, right hand (principal); G89.29 Other chronic pain; G56.01 Carpal tunnel syndrome, right upper limb
CPT/HCPCS: 20600; 77002; 99212; J1100; J2003

== ENCOUNTER → 2025-07-04 15:51 | Outpatient (BNV) | payer MEDICAID, SELFPAY | PROVIDERS: PCP Nurse Practitioner Family; Visit Provider Radiology Diagnostic Radiology | DX: M19.041 Primary osteoarthritis, right hand (principal) | CPT/HCPCS: 77002 ==